=== PATIENT | male | born 1970 | race Caucasian/White ===

== ENCOUNTER 2016-07-26 21:08 | Emergency (ER) | payer OTHER ==
[~2016-07-26] VITALS: Ht 185.4 cm; Wt 98.4 kg
[~2016-07-26 21:08] MED LIST: ALPR0.5T99 PO; DIOV160T3 PO; HYDR-2768 PO; PROT40TA PO; VIAG50TA PO; ZOFR4TAB3 SL
[2016-07-26 21:25] VITALS: BP 166/114; PULSE 104; RESP 20; TEMP 98.4; O2SAT 98
[2016-07-26 21:30] VITALS: BP 143/87; PULSE 100; RESP 18; O2SAT 95
[2016-07-26] MEDS ORDERED: SODIUM CHLOR 0.9% 1000 ML INJ 1,000 ML IV SCH ×2 (21:46→22:45)
[2016-07-26] MEDS ORDERED: HYDR12.57 PO (21:50)
[2016-07-26] MEDS ORDERED: HYOS1TAB PO/SL (21:50)
[2016-07-26] MEDS ORDERED: GABA300C5 PO (21:50)
[2016-07-26] MEDS ORDERED: VALS1TAB70 PO (21:50)
[2016-07-26] MEDS ORDERED: ALPR0.25 PO (21:50)
[2016-07-26] MEDS ORDERED: LIDOCAINE VISCOUS 2% SOLN 15 ML UDC PO ONE (22:00)
[2016-07-26] MEDS ORDERED: HYDROmorphone HCL PF 1 MG/ML VIAL IVS ONE (22:00)
[2016-07-26] MEDS ORDERED: ALUMINUM/MAGNESIUM/SIMETH 30 ML CUP PO ONE (22:00)
[2016-07-26] MEDS ORDERED: PANTOPRAZOLE SODIUM 40 MG VIAL IVP ONE (22:00)
[2016-07-26] MEDS ORDERED: SODIUM CHLORIDE 0.9% FLUSH 10 ML FLUSH IV FLUSH PRN (22:00)
[2016-07-26] MEDS ORDERED: FAMOTIDINE 20 MG/2 ML VIAL IV PUSH ONE (22:00)
[2016-07-26] MEDS ORDERED: ONDANSETRON HCL 4 MG/2 ML VIAL IVP ONE (22:00)
--- NOTE | 2016-07-26 22:00 | PD ---
HPI Chief Complaint: vomiting/abdominal pain Time Seen by Provider: 21:41 Travel History International Travel<30 days: No Contact w/Intl Traveler<30days: No Traveled to known affect area: No History of Present Illness HPI The patient is a 45-year-old male that comes by private vehicle for midline epigastric pain and vomiting since approximately 4 PM this afternoon. He denies any diarrhea. He denies any blood in the stool or vomitus. He denies any fever. He did have several drinks of alcohol today prior to getting nauseated. He states that he no longer takes Protonix. He took this for a hiatal hernia and reflux esophagitis. Endoscopy showed gastritis the last time he had this episode in 2014. Endoscopy also showed a hiatal hernia. He denies taking any aspirin or nonsteroidal anti-inflammatory medications. The patient does have a history of anxiety and did not take any of his Xanax yet today. The last time he was here in 2014 for this problem he required multiple doses of antinausea medication. PFSH Past Medical History Diminished Hearing: No Past Surgical History Abdominal Surgery: Yes (BILAT HERNIA REPAIRS) Cholecystectomy: Yes Social History Alcohol Use: Yes (socially) Tobacco Use: Yes (/ ppd) Substance Use: No Allergies-Medications (Allergen,Severity, Reaction): Coded Allergies: No Known Allergies (Verified , 07/26/16) Reported Meds & Prescriptions Reported Meds & Active Scripts Active Reported Gabapentin 300 Mg Cap 300 Mg PO QID Hyoscyamine ODT (Hyoscyamine Sulfate) 0.125 Mg Tab 0.125 Mg PO/SL TID Alprazolam 0.25 Mg Tab 0.25 Mg PO DAILY PRN Hydrochlorothiazide 12.5 Mg Cap 12.5 Mg PO DAILY Valsartan 320 Mg Tab 320 Mg PO DAILY Review of Systems Except as stated in HPI: all other systems reviewed are Neg Physical Exam Narrative GENERAL: The patient is alert, oriented 3 in moderate distress with his midline epigastric pain. He does appear anxious. He requests something for the pain. His vital signs show blood pressure 166/114 with a heart rate of 104 but otherwise are normal. SKIN: Focused skin assessment warm/dry. HEAD: Atraumatic. Normocephalic. EYES: Pupils equal and round. No scleral icterus. No injection or drainage. ENT: No nasal bleeding or discharge. Mucous membranes pink and moist. NECK: Trachea midline. No JVD. CARDIOVASCULAR: Regular rate and rhythm. No murmur appreciated. RESPIRATORY: No accessory muscle use. Clear to auscultation. Breath sounds equal bilaterally. GASTROINTESTINAL: Abdomen shows exquisite tenderness in the midline epigastrium to direct palpation, nondistended. Hepatic and splenic margins not palpable. A slight amount of epigastric guarding is present but the rest the abdomen shows no guarding or rebound. MUSCULOSKELETAL: No obvious deformities. No clubbing. No cyanosis. No edema. NEUROLOGICAL: Awake and alert. No obvious cranial nerve deficits. Motor grossly within normal limits. Normal speech. PSYCHIATRIC: Appropriate mood and affect; insight and judgment normal. Data Data Last Documented VS Vital Signs Date Time Temp Pulse Resp B/P Pulse Ox O2 Delivery O2 Flow Rate FiO2 07/27/16 00:58 16 07/27/16 00:56 72 121/72 94 Nasal Cannula 2 07/26/16 21:25 98.4 Orders Complete Blood Count With Diff (07/26/16 21:46) Comprehensive Metabolic Panel (07/26/16 21:46) Lipase (07/26/16 21:46) Urinalysis - C+S If Indicated (07/26/16 21:46) Iv Access Insert/Monitor (07/26/16 21:46) Ecg Monitoring (07/26/16 21:46) Oximetry (07/26/16 21:46) Ondansetron Inj (Zofran Inj) (07/26/16 22:00) Pantoprazole Inj (Protonix Inj) (07/26/16 22:00) Sodium Chlor 0.9% 1000 Ml Inj (Ns 1000 M (07/26/16 21:46) Sodium Chloride 0.9% Flush (Ns Flush) (07/26/16 22:00) Famotidine Inj (Pepcid Inj) (07/26/16 22:00) Hydromorphone Pf Inj (Dilaudid Pf Inj) (07/26/16 22:00) Al-Mag Hy-Si 40-40-4 Mg/Ml Liq (Mag-Al P (07/26/16 22:00) Lidocaine 2% Viscous (Xylocaine 2% Visco (07/26/16 22:00) Electrocardiogram (07/26/16 21:44) Ondansetron Inj (Zofran Inj) (07/26/16 22:45) Sodium Chlor 0.9% 1000 Ml Inj (Ns 1000 M (07/26/16 22:45) Metoclopramide Inj (Reglan Inj) (07/26/16 23:45) Alcohol (Ethanol) (07/26/16 21:55) Sodium Chlor 0.9% 1000 Ml Inj (Ns 1000 M (07/27/16 00:30) Labs Laboratory Tests Test 07/26/16 07/27/16 21:55 00:05 White Blood Count 10.5 TH/MM3 Red Blood Count 3.94 MIL/MM3 Hemoglobin 14.0 GM/DL Hematocrit 40.4 % Mean Corpuscular Volume 102.6 FL Mean Corpuscular Hemoglobin 35.6 PG Mean Corpuscular Hemoglobin 34.7 % Concent Red Cell Distribution Width 13.1 % Platelet Count 305 TH/MM3 Mean Platelet Volume 6.9 FL Neutrophils (%) (Auto) 84.9 % Lymphocytes (%) (Auto) 7.1 % Monocytes (%) (Auto) 7.3 % Eosinophils (%) (Auto) 0.3 % Basophils (%) (Auto) 0.4 % Neutrophils # (Auto) 9.0 TH/MM3 Lymphocytes # (Auto) 0.7 TH/MM3 Monocytes # (Auto) 0.8 TH/MM3 Eosinophils # (Auto) 0.0 TH/MM3 Basophils # (Auto) 0.0 TH/MM3 CBC Comment DIFF FINAL Differential Comment Sodium Level 138 MEQ/L Potassium Level 3.1 MEQ/L Chloride Level 93 MEQ/L Carbon Dioxide Level 33.6 MEQ/L Blood Urea Nitrogen 9 MG/DL Creatinine 0.97 MG/DL Random Glucose 103 MG/DL Calcium Level 8.9 MG/DL Total Bilirubin 0.7 MG/DL Aspartate Amino Transf 299 U/L (AST/SGOT) Alanine Aminotransferase 99 U/L (ALT/SGPT) Alkaline Phosphatase 75 U/L Total Protein 7.4 GM/DL Albumin 3.8 GM/DL Anion Gap 11 MEQ/L Estimat Glomerular Filtration 83 ML/MIN Rate Lipase 198 U/L Ethyl Alcohol Level 240 MG/DL Urine Color YELLOW Urine Turbidity CLEAR Urine pH 7.5 Urine Specific [place] 1.019 Urine Protein 100 mg/dL Urine Glucose (UA) NEG mg/dL Urine Ketones 15 mg/dL Urine Occult Blood NEG Urine Nitrite NEG Urine Bilirubin NEGATIVE Urine Leukocyte Esterase NEGATIVE Urine RBC 0-3 /hpf Urine WBC 0-2 /hpf Urine Squamous Epithelial 0-5 /hpf Cells Urine Bacteria NONE /hpf Microscopic Urinalysis Comment CULT NOT INDICATED MDM Medical Decision Making Medical Screen Exam Complete: Yes Emergency Medical Condition: Yes Medical Record Reviewed: Yes Interpretation(s) The EKG is completely normal with normal sinus rhythm rate of 87. Differential Diagnosis Reflux esophagitis, ulcer pain, gastritis, pancreatitis, electrolyte disorder, dehydration, anemia Narrative Course At approximately 1 AM, the computer was on downtime, the patient felt much better and was discharged. His nausea was gone and his pain was gone. 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 He is to take his Protonix as prescribed. Diagnosis Primary Impression: Gastritis Additional Instructions: As we discussed, take her Protonix as prescribed and drink clear liquids to stay hydrated. Follow-up with your screen printing press operator. Avoid alcohol, aspirin and nonsteroidal anti-inflammatory medications. Med/Other Pt SpecificInfo: Prescription(s) given Scripts Promethazine (Phenergan)25 Mg Tab25 Mg PO Q6H PRN (Nausea/Vomiting) #30 TAB Ref 0 Prov:Randy Kang MD 07/27/16 Disposition: DISCHARGE HOME Condition: Stable Randy Kang MD Jul 26, 2016 22:00
[2016-07-26 22:20] VITALS: RESP 18; O2SAT 95
[2016-07-26 22:30] VITALS: RESP 16; O2SAT 96
[2016-07-26 22:34] LABS: BASOPHIL % 0.4 % (0.0-2.0); EOSINOPHIL % 0.3 % (0.0-4.0); HEMATOCRIT 40.4 % (39.0-51.0); LYMPH % 7.1 % (9.0-44.0); LYMPHOCYTE # 0.7 TH/MM3 (1.0-4.8); MEAN CELL VOLUME 102.6 FL (80.0-100.0); MEAN CORPUSCULAR HEMOGLOBIN 35.6 PG (27.0-34.0); MEAN CORPUSCULAR HGB CONC 34.7 % (32.0-36.0); MONO % 7.3 % (0.0-8.0); NEUT % 84.9 % (16.0-70.0); PLATELET COUNT 305 TH/MM3 (150-450); RED BLOOD COUNT 3.94 MIL/MM3 (4.50-5.90); RED CELL DISTRIBUTION WIDTH 13.1 % (11.6-17.2); WHITE BLOOD COUNT 10.5 TH/MM3 (4.0-11.0)
[2016-07-26 22:38] LABS: CHLORIDE 93 MEQ/L (98-107); HEMO FLAGS DIFF FINAL; POTASSIUM 3.1 MEQ/L (3.5-5.1); SODIUM (NA) 138 MEQ/L (136-145)
[2016-07-26 22:42] LABS: ANION GAP 11 MEQ/L (5-15); BICARBONATE 33.6 MEQ/L (21.0-32.0); BLOOD UREA NITROGEN 9 MG/DL (7-18)
[2016-07-26 22:45] LABS: ALT (GPT) 99 U/L (12-78); AST (GOT) 299 U/L (15-37); GLOMERULAR FILTRATION RATE 83 ML/MIN (>89)
[2016-07-26] MEDS ORDERED: ONDANSETRON HCL 4 MG/2 ML VIAL IV ONE (22:45)
[2016-07-26 22:47] LABS: TOTAL BILIRUBIN ADULT 0.7 MG/DL (0.2-1.0)
[2016-07-26 22:48] LABS: ALKALINE PHOSPHATASE 75 U/L (45-117)
[2016-07-26 22:50] VITALS: BP 113/62; PULSE 78; RESP 16; O2SAT 97
[2016-07-26] MEDS ORDERED: METOCLOPRAMIDE HCL 10 MG/2 ML VIAL IVS ONE (23:45)
[2016-07-26 23:50] VITALS: BP 113/69; PULSE 84; RESP 16; O2SAT 96
[2016-07-27] MEDS ORDERED: SODIUM CHLOR 0.9% 1000 ML INJ 1,000 ML IV SCH (00:30)
[2016-07-27 00:56] VITALS: BP 121/72; PULSE 72; RESP 16; O2SAT 94
[2016-07-27 02:52] LABS: BLOOD, URINE NEG (NEG); GLUCOSE,URINE NEG (NEG); KETONE, URINE 15 mg/dL (NEG); NITRITE,URINE NEG (NEG); PH, URINE 7.5 (5.0-8.5); RBC, URINE 0-3 /hpf (0-3); SQUAMOUS EPITHELIAL CELL URINE 0-5 /hpf (0-5); URINE COLOR YELLOW (YELLW/STRAW); WBC, URINE 0-2 /hpf (0-5)
[2016-07-27 02:53] LABS: COMMENT (UR) CULT NOT INDICATED; CULTURE IF INDICATED CULT NOT INDICATED
[2016-07-27] MEDS ORDERED: PROM25TA5 PO (02:59)
--- NOTE | 2016-07-27 14:59 | EKG ---
Date Performed: 07/26/2016 Time Performed: 21:34:20 PTAGE: 45 years EKG: Sinus rhythm Since previous tracing, no significant change noted Normal ECG PREVIOUS TRACING : 12/27/2014 23.41 DOCTOR: Too Pace Interpretating Date/Time 07/27/2016 14:57:37
== END 2016-07-27 03:36 | disposition home or self-care (01) ==
LOC: PHED 21:08
DX: K29.70 Gastritis, unspecified, without bleeding (principal)
CPT/HCPCS: 80053; 80307; 81001; 83690; 85025; 93005; 96361; 96374; 96375; 96376; 99284; C9113; J1170; J2405; J2765; J7030

== ENCOUNTER 2017-12-01 11:12 | Inpatient (IN) ==
[~2017-12-01 11:12] MED LIST changes: -ALPR0.5T99 PO; +Bupivacaine/Epinephrine 0.5% Inj 50 ML Vial ONE; -DIOV160T3 PO; -HYDR-2768 PO; +Hypromellose 0.3% Opth Gel 10 GM Bottle ONE; -PROT40TA PO; +Propofol Inj 500 MG/50 ML Vial ONE; +Thrombin Topical Soln 5,000 UNIT Vial TOPICAL ONE; -VIAG50TA PO; -ZOFR4TAB3 SL
[2017-12-01] MEDS ORDERED: Vancomycin Inj 1 GM/200 ML PIGGYBACK IV.SIG ONE ×2 (12:00→13:00)
[2017-12-01] MEDS ORDERED: Ketamine Inj 50 MG/5 ML Syringe IV.PUSH ONE (12:13)
[2017-12-01] MEDS ORDERED: Metoprolol Tartrate 25 MG Tablet PO SCH (12:15)
[2017-12-01] MEDS ORDERED: Chlorhexidine Gluconate 2% 1 Pack (2 Cloths) TOPICAL SCH (12:15)
[2017-12-01] MEDS ORDERED: Sod Chloride 0.9% Inj 1,000 ML IV.SIG SCH (12:30)
[2017-12-01] MEDS ORDERED: Sodium Chlor 0.9% Inj 500 ML IV.SIG SCH (13:00)
[2017-12-01] MEDS ORDERED: ceFAZolin 2 GM Premix Inj 2 GM/50 ML PIGGYBACK IV.SIG ONE (13:11)
[2017-12-01] MEDS ORDERED: fentaNYL Citrate Inj 250 MCG/5 ML Ampul ONE (13:57)
[2017-12-01] MEDS ORDERED: Bisacodyl 10 MG Supp RECTAL PRN ×3 (14:00→14:03)
[2017-12-01] MEDS ORDERED: HYDROmorphone PF Inj 2 MG/ML Vial ONE (14:01)
[2017-12-01] MEDS ORDERED: Naloxone Inj 0.4 MG/ML Vial IV.PUSH PRN (14:05)
[2017-12-01] MEDS ORDERED: Propofol Inj 500 MG/50 ML Vial ONE (16:09)
--- NOTE | 2017-12-01 17:20 | P.OP ---
- Preoperative Diagnosis (1) Lumbar degenerative disc disease - Postoperative Diagnosis (1) Lumbar degenerative disc disease Date of procedure: 12/01/17 Procedure: L4-L5 laminectomy, interbody arthrodhesis using PEEK cage and autologous bone graft, L4-L5 instrumental fixation using transpedicular screws and rods, L4-L5 posterolateral fusion using autologous bone graft and demineralized bone matrix. Microsurgical dissection Anesthesia: ANGELIQUE Surgeon: Alvaro Servin MD Entertainment Production Professional: Edel Aguilar Pathology: none sent Operation and Findings: INDICATIONS FOR THE SURGICAL PROCEDURE Mr Spicer is a 47 year-old with a hisyory of a prior L5-S1 fusion, who presented with intractable mechanical back pain and kareen evidence of L5 lower extremity radiculopathy. He failed maximum nonsurgical management including multiple modalities of conservative treatment as well as pain management interventions by an interventional pain specialist. A surgical decompression and arthrodhesis were indicated as a last resort. The [id number] details of the procedure, indications, alternatives, risks and potential complications were fully discussed with the patient. The patient fully understood. All the questions were answered. No guarantees were given. The patient voiced requesting the procedure and provided informed consents. The patient was offered the alternative of delaying the procedure and continuing with nonsurgical management. DETAILS OF THE SURGICAL PROCEDURE Prior to the procedure, the surgical incision was marked in the preoperative surgical holding room, and the procedure, risks, and potential complications revisited with the patient. Placement of electrodes for intraoperative neurophysiological monitoring was completed. The patient was taken to the operative room, and following induction of general anesthesia, endotracheal intubation was performed. A Lawrence catheter, bilateral BOB hose and sequential compression devices were placed and kept throughout the procedure. The patient was positioned prone, over a Louis table over a bolsters. All pressure in the preoperative surgical holding room points were carefully padded with eggcrate and gel mattress. The eyes were tapped shut after ointment was applied by the anesthesiologist to prevent corneal abrasion. A Carmel hugger was placed over the expossed lower body to maintain control of the core body temperature. The electrophysiological team placed the needles and electrodes in their proper location and baseline SSEP's and EMG potentials were registered. The entrance to each pedicles was marked using a C arm. The lumbar region was prepped and draped in the usual sterile fashion. The surgical procedure was performed in several steps as follow: SURGICAL APPROACH Once the patient was positioned, a localizing cross-table lateral x-ray was performed with a C-arm. Two paramedian small incisions were outlined on the skin approximately 3cm from the midline. The skin incisions were made with a # 10 blade. Small bleeders were controlled with the cautery. The dissection was then carried out into deper planes and through the thoracolumbar fascia with a Bovie. The intermuscular septum was identified and the myscles were blunted dissected along the septum. The facets and transverse process of L4 and L5 were exposed and the proper anatomical landmarks were identified. A microsurgical self-retaining retractor was placed on the incision, and a localizing lateralizing cross-table x-ray was performed with an instrument underneath a lamina of the lumbar spine. INSTRUMENTAL FIXATION At this point in the procedure, placement of bilateral transpedicular screws was necessary for stabilization of the spine. Initially, the entry point for the screw was selected anatomically at the junction of the facet, with the transverse process, and the pars interarticularis at L4 and L5. This was started with a Giamshetti needle followed by the use of a sofia wire. A tap was used to create the threads for the screws. Finally bilateral transpedicular screws were carefully placed bilaterally at L4, and L5 under fluoroscopic visualization. An appropriate purchase was achieved with all screws. The position of each screw was assessed anatomically with an AP, lateral , oblique Xrays. An intraoperative scan view of the spine was then performed using the iso-centric c-arm. Each screw was then assessed electrophysiologically stimulating each screw with a nerve stimulator. SURGICAL DECOMPRESSION There was significant mass effect with compression of the neural structures. In order to relieve neural compression, it was necessary to perform a decompressive laminectomy, with decompression of the spinal canal and bilateral lateral recesses. Note that the scope of such decompression was significantly more extensive than the minimal exposure necessary to perform an interbody fusion, as there was extreme facet arthropathy with near complete collapse of the disk spaces and severe stenosis cause by the hyperthrophic joint facets. At this point of the procedure the operative microscope was draped in the usual sterile fashion and brought to the field. The rest of the surgical procedure was performed using microdissection technique with the exception of the closure. Under the operating microscope, a decompressive laminectomy was carried out at L4-L5 as follow: The laminae, base of the spinous processes and facets were carefully drilled exposing the ligamentum flavum. The facets were abnormal with severe spondylolisthesis and gross mechanical instability. A large disk protusion was compressing the neural structures and exiting nerve roots. A near complete facetectomy was necessary resulting in further mechanical instability. The ligamentum flavum appeared hypertrophic, resulting on mass effect on the dorsal surface of the neural structures. The superior free border of the ligamentum flavum was elevated with a ligament dissector and the ligamentum flavum was removed with a 3 and 4 mm Kerrison forceps. The ligament was very adherent to the dural sac and during the dissection, and extreme care was taken during the dissection. The exiting nerve roots were identified, and a wide foraminotomy was performed with a Kerrison in their trajectory towards the neural foramen. Epidural veins located laterally to the dural sac were coagulated with the bipolar cautery, and then incised using microscissors. Gentle medial retraction of the dural sac allowed me to expose the disc space for the discectomy. Upon completion of the discectomy, an excellent decompression of the neural structures was achieved. Increased motion was noted thorough the procedure, which was consistent with mechanical instability. INTERBODY ARTHRODHESIS In order to correct the narrowing of the disk space and maintain distraction of the space, and to achieve a solid interbody fusion, it was necessary the insertion of an interbody device into the disk space. Otherwise, the disk space would collapse, compromising the result of the surgical procedure. At this point of the procedure, the annulus fibrosus of the disk was carefully coagulated with a bipolar cautery and incised using an 11 bladed knife. Then, a microdiscectomy was carried out in a standard fashion using a combination of straight and up-biting pituitary forceps. A reverse angle curette was applied underneath the posterior longitudinal ligament, and used to push the disk fragments into the disk space, so they can be safely removed with a pituitary forceps. Once the discectomy was completed, it was necessary to decorticate the endplates, in order to eliminate the cartilaginous endplate and to expose healthy bone appropriate to perform the interbody fusion. The endplates at L4- L5 were then thoroughly decorticated using increasing size bone brittney and ring curets, eliminating the cartilaginous fragments from both, the superior and inferior endplates. A disk space distractor was applied to the pedicle screws and gentle distraction was applied. This maneuver was assisted by the use of a disk distractor. Increased motility was noted at the disk, which was consistent with instability due to facet arthropathy. Once a thorough preparation of the disk space was achieved, the disk space was irrigated with antibiotic solution, and the interbody fusion was performed by carefully impacting a PPEK cage filled with autologous bone graft. A solid position of the cage with good purchase was achieved. The position of the cage was assessed anatomically with a probe and radiologically with the C-arm. POSTEROLATERAL FUSION The posterolateral fusion is a critical component to the procedure, to prevent future fatigue and failure of the instrumental fixation. Initially, the transverse processes of the vertebral bodies, lateral surface of the facets and the lateral gutters of the spine were carefully cleaned, eliminating all soft tissue and muscle attachments. The area was then irrigated with a large amount of antibiotic solution. Subsequently, the transverse processes, lateral surface of the facets, and lateral gutters of the spine were thoroughly decorticated using the TPS drill with a 5mm cutting alisha, exposing cancellous bone, in preparation for the posterolateral fusion. The incision was again irrigated with antibiotic solution. Then, the posterolateral fusion was then performed by carefully packing the lateral gutters of the spine at L4-L5 with autologous bone combined with demineralized bone matrix. I packed as much bone as possible. COMPLETION OF THE INSTRUMENTATION AND CLOSURE The rods were brought to the field, applied to all the screws, and the screw caps were sequentially applied. Compression was performed between the pedicle screws, and final tightening of the screws was completed using a torque wrench. The incision was again thoroughly irrigated with several liters of antibiotic solution, and hemostasis secured with the bipolar cautery. A Valsalva Maneuver performed by the anesthesiologist failed to show any evidence of cerebrospinal fluid leak or bleeding. A 10 mm Louis-Mar drain was left in the epidural space and externalized through a separate stab incision. The incision was then closed in planes. 0 Vicryl was used in an interrupted fashion to close the thoracolumbar fascia and the superficial fascia. The subcutaneous tissue was then approximated using 3-0 Vicryl in an interrupted fashion. Special care was taken to avoid space. The skin was then closed with 4-0 Vicryl in a running, subcuticular fashion. Dermabond was applied to the skin. Each plane of closure was irrigated with antibiotic solution. At the end of the procedure the sponge, needle and instrument counts were all correct. Estimated blood loss was 250 cc. No blood transfusion was given. The entire procedure was performed using continuous electrophysiological monitoring of the somatosensorial evoked potentials and EMG. The patient received prophylactic antibiotics. The patient was then extubated and transferred to the recovery room in stable condition.
[2017-12-01] MEDS ORDERED: fentaNYL Citrate Inj 100 MCG/2 ML Ampul ONE (17:50)
--- NOTE | 2017-12-01 17:50 | ECG ---
Date Performed: 12/01/2017 Time Performed: 11:32:57 PTAGE: 47 years EKG: Sinus rhythm NORMAL ECG Since the PREVIOUS TRACING , no significant change noted PREVIOUS TRACIN07/26/2016 21.34 DOCTOR: Viraj Galdamez Interpretating Date/Time 12/01/2017 17:49:01
[2017-12-01] MEDS ORDERED: Morphine Inj 4 MG/ML Vial ONE (17:51)
[2017-12-01] MEDS: HYDROmorphone PCA Inj 6 MG/30 ML PCA.VIAL PCA PRN (18:07)
[2017-12-01] MEDS ORDERED: *Ondansetron Inj 4 MG/2 ML Vial PERIprocedural Use ONLY ONE (18:17)
[2017-12-01] MEDS ORDERED: *Labetalol HCl Inj 100 MG/20 ML Vial PERIprocedural Use ONLY IV.PUSH ONE (18:34)
--- NOTE | 2017-12-01 19:47 | XR ---
EXAM DATE: 12/01/2017 7:33 PM EDT AGE/SEX: 47 years / Male INDICATIONS: Fusion L4,L5 with screws and rods placement. CLINICAL DATA: This is the patient's initial encounter. Patient reports that signs and symptoms have been present for 1 day and indicates a pain score of Nonresponsive. MEDICAL/SURGICAL HISTORY: None. Fusion, lumbar. COMPARISON: No prior exams available for comparison. FINDINGS: There is anterior plate and screw fixation across the lumbosacral junction with intravertebral metal prosthesis. There is also posterior transpedicular screw and maria l fixation across L4-5 with disc prost hesis. CONCLUSION: Postoperative changes as above. Electronically signed by: Catrachito Velarde MD 12/01/2017 7:46 PM EDT
[2017-12-01] MEDS ORDERED: Senna/Docusate Sodium 8.6/50 MG Tablet PO SCH ×2 (21:00)
[2017-12-01] MEDS: ALPRAZolam 0.5 MG Tablet PO PRN (21:04)
[2017-12-01] MEDS: ceFAZolin 2 GM Premix Inj 2 GM/50 ML PIGGYBACK IV.SIG SCH (21:04)
[2017-12-01] MEDS: Senna/Docusate Sodium 8.6/50 MG Tablet PO SCH (21:04)
[2017-12-02] MEDS: HYDROmorphone PCA Inj 6 MG/30 ML PCA.VIAL PCA PRN ×2 (01:47→10:07)
[2017-12-02] MEDS ORDERED: LORazepam 1 MG Tablet PO PRN (03:38)
[2017-12-02] MEDS: ceFAZolin 2 GM Premix Inj 2 GM/50 ML PIGGYBACK IV.SIG SCH (05:00)
[2017-12-02] MEDS: Senna/Docusate Sodium 8.6/50 MG Tablet PO SCH ×2 (08:53→20:53)
[2017-12-02] MEDS: hydroCHLOROthiazide 25 MG Tablet PO SCH (08:53)
--- NOTE | 2017-12-02 08:58 | P.CONIM ---
History of Present Illness Requesting Physician: Alvaro Servin Reason for Consult: Postoperative medical management and CIWA Primary Care Provider: Wellington Palmer MD Family Provider: Wellington Palmer MD History of Present Illness: This a 47-year-old male patient with a past medical history which includes hypertension, lumbar radiculopathy, lumbar degenerative disc disease, anxiety/ depression, GERD, Blandon's esophagitis, daily EtOH use and current tobacco use. On 12/01/2017 patient underwent L4-L5 laminectomy, interbody arthrodhesis using PEEK cage and autologous bone graft, L4-L5 instrumental fixation using transpedicular screws and rods, L4-L5 posterolateral fusion using autologous bone graft and demineralized bone matrix. Microsurgical dissection with Dr. Servin. We have been consulted for assistance with postoperative medical management and also CIWA protocol. Patient reports feeling anxious and is visually tremulous. Patient denies N/V/D/C, fevers, chills, chest pain or shortness of breath. Past medical history: hypertension, lumbar radiculopathy, lumbar degenerative disc disease, anxiety/ depression, GERD, Blandon's esophagitis, daily EtOH use and current tobacco use Past surgical history: Prior back surgeries, cholecystectomy, complete colonoscopy, duodenoscopy with biopsy, hernia repair, epidural injections and spinal arthrodesis Family medical history: Malignant neoplasm of the brain and malignant neoplasm of the esophagus Social history: Patient reports daily ETOH use, approximately 6-7 large Yeti cups per night Current tobacco user proximally 1 pack per day Denies illicit drug use Review of Systems All other systems reviewed negative except as stated in [facility] - History History Provided By: Patient, Significant Other - Medical History Medical History: Medical History (Last Reviewed 12/01/17 @ 11:27 by Jing Hanks) Anxiety GERD (gastroesophageal reflux disease) Hiatal hernia History of colon polyps Hypertension Normal colonoscopy - Surgical History Surgical History: Surgical History (Last Reviewed 12/01/17 @ 11:27 by Jing Hanks) History of bilateral inguinal hernia repair Hx of cholecystectomy Previous back surgery Status post bilateral foot surgery - Tobacco History Second Hand Smoke Exposure: No Tobacco Use In Past 30 Days: Yes Smoking Status: Current every day smoker Tobacco Type: Cigarettes - Alcohol History How Often Do You Have a Drink Containing Alcohol: 4 or more times a week - Substance Use History Substance History: No History of Abuse - Travel History Recent Travel in the [place] Within the Last 8 Weeks: No Recent Travel Out of the Country Within the Last 8 Weeks: No - Immunization History Tetanus Immunization: Unsure Hx Influenza Vaccine This Season: Yes Medications and Allergies Active Medications: Active Medications Hydrocodone Bitart/Acetaminophen ([place] 10/325) 2 tab PO Q4H PRN PRN Reason: PAIN SCALE 6 TO 10 Hydrocodone Bitart/Acetaminophen ([place] 10/325) 1 tab PO Q4H PRN PRN Reason: Pain 1 to 5 Al Hydroxide/Mg Hydroxide (Milk Of Magnmarivel Liq) 30 ml PO Q12H PRN PRN Reason: Mild Constipation Alprazolam (Xanax) 0.5 mg PO BID PRN PRN Reason: Anxiety Last Admin: 12/01/17 21:04 Dose: 0.5 mg Bisacodyl (Dulcolax Supp) 10 mg RECTAL DAILY PRN PRN Reason: SEVERE CONSITIPATION Chlorhexidine Gluconate (Chlorhexidine 2% Cloth) 3 pack TOPICAL HOSE STRIPPER [facility] Stop: 12/04/17 12:15 Flumazenil (Romazecon Inj) 0.2 mg IV.PUSH Q1M PRN PRN Reason: OVERSEDATION Hydrochlorothiazide (Hydrodiuril) 25 mg PO DAILY [facility] Lactated Ringer's (Lr 1000 Ml Inj) 1,000 mls @ 30 mls/hr IV.SIG .Q24H [facility] Stop: 12/04/17 12:15 Sodium Chloride (Ns Inj) 500 mls @ 30 mls/hr IV.SIG .Q10H [facility] Stop: 12/04/17 12:15 Sodium Chloride (Ns Inj) 1,000 mls @ 30 mls/hr IV.SIG .Q24H [facility] Cefazolin Sodium/Dextrose (Ancef 2 Gm Premix Inj) 2 gm in 50 mls @ 100 mls/hr IV.SIG Q8H [facility] Stop: 12/02/17 13:29 Last Admin: 12/02/17 05:00 Dose: 100 mls/hr Potassium Chloride/Sodium Chloride (Ns + Kcl 20 Meq Inj) 1,000 mls @ 100 mls/ hr IV.CONT .Q10H [facility] Last Admin: 12/01/17 18:06 Dose: 100 mls/hr Hydromorphone/Sodium Chloride (Dilaudid Winchman/Crane Operator Inj) 6 mg in 30 mls @ 0 mls/hr PLANNING OFFICIAL UNSCH PRN PRN Reason: per PLANNING OFFICIAL parameters Last Admin: 12/02/17 01:47 Dose: 0 mls/hr Lactulose (Lactulose Liq) 30 ml PO DAILY PRN PRN Reason: SEVERE CONSITIPATION Lorazepam (Ativan Inj) 1 mg IV.PUSH Q30M PRN PRN Reason: AGITATION Last Admin: 12/02/17 03:35 Dose: 1 mg Lorazepam (Ativan) 1 mg PO Q4H PRN PRN Reason: for CIWA 8-10 Lorazepam (Ativan) 2 mg PO Q2H PRN PRN Reason: for CIWA 11-14 Lorazepam (Ativan Inj) 2 mg IV.PUSH Q2H PRN PRN Reason: for CIWA 11-14 Lorazepam (Ativan Inj) 2 mg IV.PUSH Q15M PRN PRN Reason: for CIWA > 20 Lorazepam (Ativan Inj) 1 mg IV.PUSH Q4H PRN PRN Reason: for CIWA 8-10 Lorazepam (Ativan Inj) 2 mg IV.PUSH Q1H PRN PRN Reason: for CIWA 15-20 Losartan Potassium (Cozaar) 100 mg PO DAILY [facility] Metoprolol Tartrate (Lopressor) 25 mg PO HOSE STRIPPER [facility] Stop: 12/04/17 12:15 Miscellaneous Information ([facility]) 1 each OTHER UNSCH PRN PRN Reason: SEE LABEL COMMENTS Stop: 12/02/17 17:36 Naloxone HCl (Narcan Inj) 0.4 mg IV.PUSH PRN PRN PRN Reason: SEE LABEL COMMENTS Ondansetron HCl (Zofran Inj) 4 mg IV.PUSH Q8H PRN PRN Reason: NAUSEA Last Admin: 12/01/17 21:17 Dose: 4 mg Ondansetron HCl (Zofran Odt) 4 mg PO Q8H PRN PRN Reason: NAUSEA Last Admin: 12/02/17 07:09 Dose: 4 mg Pantoprazole Sodium (Protonix) 40 mg PO DAILY [facility] Povidone Iodine (Betadine 5% Antisepsis Kit) 1 applicatio EACH NARE HOSE STRIPPER [facility] Stop: 12/04/17 12:15 Senna/Docusate Sodium (Ariadne-Colace) 1 tab PO BID [facility] Last Admin: 12/01/17 21:04 Dose: 1 tab Sennosides (Senokot) 17.2 mg PO Q12H PRN PRN Reason: Moderate Constipation Allergies Allergy/AdvReac Type Severity Reaction Status Date / Time No Known Allergies Allergy Unverified 12/01/17 11:27 Home Medications Medication Instructions Recorded Confirmed Type alprazolam 0.5 mg PO BID PRN 11/30/17 12/01/17 History hydrochlorothiazide 25 mg PO DAILY 11/30/17 12/01/17 History pantoprazole 40 mg PO DAILY 11/30/17 12/01/17 History telmisartan 80 mg PO DAILY 11/30/17 12/01/17 History Exam Vital signs: Vital Signs 12/01/17 11:32 12/01/17 17:33 12/01/17 17:45 Temperature 98.8 F 97.2 F L Pulse Rate 96 H 97 H 91 H Respiratory Rate 20 15 15 Blood Pressure 159/101 H 172/109 H 160/94 H Pulse Oximetry 97 95 93 L 12/01/17 18:00 12/01/17 18:15 12/01/17 18:30 Temperature Pulse Rate 92 H 90 93 H Respiratory Rate 14 14 16 Blood Pressure 173/103 H 178/110 H 175/99 H Pulse Oximetry 95 96 96 12/01/17 18:48 12/01/17 19:00 12/01/17 19:30 Temperature Pulse Rate 87 88 86 Respiratory Rate 16 16 16 Blood Pressure 169/97 H 177/96 H 167/104 H Pulse Oximetry 97 96 96 12/01/17 20:00 12/02/17 00:00 12/02/17 04:00 Temperature 97.3 F L 97.5 F L 97.3 F L Pulse Rate 85 82 97 H Respiratory Rate 21 20 19 Blood Pressure 176/109 H 163/97 H 147/95 H Pulse Oximetry 95 97 98 12/02/17 08:00 Temperature 97.2 F L Pulse Rate 88 Respiratory Rate 17 Blood Pressure 129/87 Pulse Oximetry 97 Intake & Output 12/01/17 12/02/17 12/02/17 18:59 06:59 18:59 Intake Total 2500 / 2500 2550 / 2550 Output Total 650 / 650 2300 / 2300 Balance 1850 / 1850 250 / 250 Weight 96.1 kg 86.1 kg Intake: IV 50 / 50 Ancef 2 GM Premix Inj 2 gm In 50 / 50 50 ml @ 100 mls/hr IV.SIG Q8H [facility] Rx#:[id number] Oral 2500 / 2500 Anesthesia Amount 2500 / 2500 Output: Urine 2000 / 2000 Estimated Blood Loss 200 / 200 Urine Amount (Catheter) 450 / 450 300 / 300 Indwelling Urethral Catheter 450 / 450 300 / 300 Other: Date of Last Bowel Movement 11/30/17 Weight On Admission 96.1 kg Narrative: GENERAL: This is a well-nourished, well-developed patient, visibly tremulous CARDIOVASCULAR: Regular rate and rhythm RESPIRATORY: Clear to auscultation. Breath sounds equal bilaterally. GASTROINTESTINAL: Abdomen soft, non-tender, nondistended. Normal active bowel sounds MUSCULOSKELETAL: Extremities without clubbing, cyanosis, or edema. NEURO: Alert & Oriented x4 to person, place, time, situation. Moves all ext x4. Anxious and tremulous Results - Labs Labs: Laboratory Results - last 24 hr 12/01/17 12/01/17 12/01/17 11:55 11:55 11:55 APTT 26.9 Nasal Screen MRSA (PCR) Not detected Blood Type O Positive Blood Type Recheck Required Antibody Screen Negative - Imaging Impressions Lumbar Spine X-Ray 12/01/17 00:00 CONCLUSION: Postoperative changes as above. Assessment and Plan - Assessment (1) Lumbar degenerative disc disease Code(s): M51.36 - Other intervertebral disc degeneration, lumbar region Status : Acute Plan: Lumbar radiculopathy, Lumbar degenerative disc disease, S/P L4-L5 laminectomy, interbody arthrodhesis using PEEK cage and autologous bone graft, L4-L5 instrumental fixation using transpedicular screws and rods, L4 -L5 posterolateral fusion using autologous bone graft and demineralized bone matrix. Microsurgical dissection with Dr. Servin Hypertension Continue patient's home telmisartan and hydrochlorothiazide Anxiety/depression Continue patient's home alprazolam 0.5 mg p.o. twice daily as needed GERD Blandon's esophagitis Continue patient's home pantoprazole ETOH abuse Librium 25 mg TID first dose now, discussed with nurse that patient urgently needs first dose of Librium continue CIWA protocol seizure precautions patient being moved to a room closer to the nursing station for closer monitoring Current tobacco use Counseled encouraged to abstain DVT prophylaxis with SCDs avoid chemical DVT prophylaxis as patient has recently had spinal surgery
--- NOTE | 2017-12-02 09:55 | P.PNNS ---
Subjective Interval history: 12/02: c/o of moderate to severe surgical pain worse when he tries to move. Physical Exam Vital signs: Vital Signs 12/01/17 11:32 12/01/17 17:33 12/01/17 17:45 Temperature 98.8 F 97.2 F L Pulse Rate 96 H 97 H 91 H Respiratory Rate 20 15 15 Blood Pressure 159/101 H 172/109 H 160/94 H Pulse Oximetry 97 95 93 L 12/01/17 18:00 12/01/17 18:15 12/01/17 18:30 Temperature Pulse Rate 92 H 90 93 H Respiratory Rate 14 14 16 Blood Pressure 173/103 H 178/110 H 175/99 H Pulse Oximetry 95 96 96 12/01/17 18:48 12/01/17 19:00 12/01/17 19:30 Temperature Pulse Rate 87 88 86 Respiratory Rate 16 16 16 Blood Pressure 169/97 H 177/96 H 167/104 H Pulse Oximetry 97 96 96 12/01/17 20:00 12/02/17 00:00 12/02/17 04:00 Temperature 97.3 F L 97.5 F L 97.3 F L Pulse Rate 85 82 97 H Respiratory Rate 21 20 19 Blood Pressure 176/109 H 163/97 H 147/95 H Pulse Oximetry 95 97 98 12/02/17 08:00 Temperature 97.2 F L Pulse Rate 88 Respiratory Rate 17 Blood Pressure 129/87 Pulse Oximetry 97 Intake & Output 12/01/17 12/02/17 12/02/17 18:59 06:59 18:59 Intake Total 2500 / 2500 2550 / 2550 Output Total 650 / 650 2300 / 2300 Balance 1850 / 1850 250 / 250 Weight 96.1 kg 86.1 kg Intake: IV 50 / 50 Ancef 2 GM Premix Inj 2 gm In 50 / 50 50 ml @ 100 mls/hr IV.SIG Q8H [facility] Rx#:[id number] Oral 2500 / 2500 Anesthesia Amount 2500 / 2500 Output: Urine 1999 / 1999 Estimated Blood Loss 200 / 200 Urine Amount (Catheter) 450 / 450 300 / 300 Indwelling Urethral Catheter 450 / 450 300 / 300 Other: Date of Last Bowel Movement 11/30/17 Weight On Admission 96.1 kg Narrative: Awake, alert appearing mildly uncomfortable due to pain moving lower extremities but exam limited due to his pain - Urinary Catheter Management Indwelling Urethral Catheter Cath placed during this visit: yes Reason for continuing: Hourly intake/output Insertion date: 12/01/17 Insertion time: 13:15 Assessment and Plan - Plan Assessment: 47 y/o male s/p L4-L5 laminectomy, interbody arthrodesis using PEEK cage and autologous bone graft, L4-L5 instrumental fixation using transpedicular screws and rods, L4-L5 posterolateral fusion using autologous bone graft and demineralized bone matrix. Microsurgical dissection 12/01/17 Etoh dependence Plan: cont pain control on [employer] LSO brace PT, start mobilizing with LSO appreciate medical assistance CIWA protocol
[2017-12-02] MEDS ORDERED: ceFAZolin 2 GM/NS 100 ML IV; Q8H IV.SIG ONE ×2 (13:00)
[2017-12-02] MEDS: chlordiazePOXIDE 25 MG Capsule PO SCH ×2 (14:46→20:53)
[2017-12-03] MEDS: chlordiazePOXIDE 25 MG Capsule PO SCH ×4 (02:29→21:10)
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
[2017-12-03] MEDS ORDERED: Potassium Chlor 40 mEq Premix 40 MEQ/100 ML PIGGYBACK IV.SIG PRN ×2 (08:03)
[2017-12-03] MEDS ORDERED: Potassium Phosphate Inj 30 MMOL in Sodium Chlor 0.9% Inj 250 ML IV.SIG PRN (08:03)
[2017-12-03] MEDS ORDERED: Magnesium Sulfate Inj 4 GM in Sodium Chlor 0.9% Inj 92 ML IV.SIG PRN (08:03)
[2017-12-03] MEDS ORDERED: Magnesium Oxide 400 MG Tablet PO PRN (08:03)
[2017-12-03] MEDS ORDERED: Potassium Chloride 25 MEQ Effervescent Tablet PO PRN (08:03)
[2017-12-03] MEDS ORDERED: Sodium Phosphate Inj 30 MMOL in Sodium Chlor 0.9% Inj 250 ML IV.SIG PRN (08:03)
[2017-12-03] MEDS ORDERED: Potassium Phosphate 500 MG Soluble Tablet PO PRN ×2 (08:03)
[2017-12-03] MEDS ORDERED: Magnesium Sulfate Inj 2 GM in Sodium Chlor 0.9% Inj 96 ML IV.SIG PRN (08:03)
[2017-12-03] MEDS ORDERED: Potassium Chlor 20 mEq Premix 20 MEQ/100 ML PIGGYBACK IV.SIG PRN ×2 (08:03)
[2017-12-03] MEDS ORDERED: *Labetalol HCl Inj 100 MG/20 ML Vial PERIprocedural Use ONLY IV.PUSH PRN (08:07)
[2017-12-03] MEDS: Dexmedetomidine Inj 200 MCG in Sodium Chlor 0.9% Inj 48 ML IV.CONT PRN ×2 (08:10→13:04)
[2017-12-03] MEDS: hydroCHLOROthiazide 25 MG Tablet PO SCH (08:11)
[2017-12-03] MEDS: Senna/Docusate Sodium 8.6/50 MG Tablet PO SCH ×2 (08:11→21:10)
[2017-12-03] MEDS: Multivitamin Inj 10 ML, Thiamine Inj 100 MG, Folic Acid Inj 1 MG in Sodium Chlor 0.9% I... IV.SIG SCH (09:03)
[2017-12-03] MEDS ORDERED: Morphine Inj 4 MG/ML Vial IV.PUSH PRN (09:29)
[2017-12-03 10:20] LABS: Hematocrit 30.8 % (39.0-51.0); Hemoglobin 10.8 gm/dL (13.0-17.0); Mean Corpuscular HGB Conc 35.1 % (32.0-36.0); Mean Corpuscular Hemoglobin 38.2 pg (27.0-34.0); Mean Corpuscular Volume 108.8 fL (80.0-100.0); Mean Platelet Volume 6.6 fL (7.0-11.0); Platelet Count 201 th/mm3 (150-450); Red Blood Count 2.83 mil/mm3 (4.50-5.90); Red Cell Distribution Width 14.9 % (11.6-17.2); White Blood Count 8.6 th/mm3 (4.0-11.0)
[2017-12-03 10:43] LABS: Albumin 3.4 g/dL (3.4-5.0); Anion Gap 9 meq/L (5-15); Aspartate Aminotransferase 61 U/L (15-37); Blood Urea Nitrogen 4 mg/dL (7-18); Calcium 8.8 mg/dL (8.5-10.1); Carbon Dioxide 26.3 meq/L (21.0-32.0); Chloride 99 meq/L (98-107); Glomerular Filtration Rate Greater Than 89 mL/min (>89); Glucose,Random 123 mg/dL (74-106); Potassium 3.6 meq/L (3.5-5.1); Sodium 134 meq/L (136-145)
[2017-12-03 10:48] LABS: Alanine Aminotransferase 34 U/L (12-78); Alkaline Phosphatase 48 U/L (45-117); Total Protein 6.4 g/dL (6.4-8.2)
[2017-12-03 11:08] LABS: Magnesium 1.3 mg/dL (1.5-2.5); Phosphorus 1.9 mg/dL (2.5-4.9)
--- NOTE | 2017-12-03 11:29 | P.PNNS ---
Subjective Interval history: 12/03: became severely agitated last night. transferred to ICU, on Precedex drip. Physical Exam Vital signs: Vital Signs 12/02/17 12:00 12/02/17 16:00 12/02/17 20:00 Temperature 97.4 F L 97.9 F 98.2 F Pulse Rate 100 H 98 H 102 H Respiratory Rate 18 18 18 Blood Pressure 156/101 H 150/93 H 152/79 H Pulse Oximetry 98 100 95 12/03/17 00:00 12/03/17 04:00 12/03/17 08:00 Temperature 98.7 F 98.4 F 99.1 F Pulse Rate 95 H 110 H Respiratory Rate 18 18 22 Blood Pressure 130/83 159/81 H 179/110 H Pulse Oximetry 96 95 97 12/03/17 08:01 Temperature Pulse Rate Respiratory Rate Blood Pressure Pulse Oximetry 100 Intake & Output 12/02/17 12/03/17 12/03/17 18:59 06:59 18:59 Intake Total 3700 / 3700 420 / 420 1120 / 1120 Output Total 3650 / 3650 765 / 765 Balance 50 / 50 -345 / -345 1120 / 1120 Weight 98.1 kg Intake: IV 1000 / 1000 NS + KCl 20 mEq Inj 1,000 ML @ 1000 / 1000 100 mls/hr IV.CONT .Q10H [facility] Rx #:[id number] Oral 1200 / 1200 420 / 420 120 / 120 Anesthesia Amount 2500 / 2500 Output: Urine 2000 / 2000 750 / 750 Estimated Blood Loss 400 / 400 Urine Amount (Catheter) 1250 / 1250 Indwelling Urethral Catheter 1250 / 1250 Wound Drainage # 1 Medial Back Other: Date of Last Bowel Movement 11/30/17 11/30/17 11/30/17 Narrative: mildly sedated on precedex, appears calm awake no distress - Urinary Catheter Management Indwelling Urethral Catheter Cath placed during this visit: yes, but has since been removed by the nurse Reason for continuing: Hourly intake/output Insertion date: 12/01/17 Insertion time: 13:15 Removal date: 12/03/17 Removal time: 06:00 Assessment and Plan - Plan Assessment: 47 y/o male s/p L4-L5 laminectomy, interbody arthrodesis using PEEK cage and autologous bone graft, L4-L5 instrumental fixation using transpedicular screws and rods, L4-L5 posterolateral fusion using autologous bone graft and demineralized bone matrix. Microsurgical dissection 12/01/17 Etoh dependence Plan: cont sedated with precedex for agitation, ADMINISTRATIVE JOB TITLES dc'ed, lortab prn and morphine for breakthrough for postoperative pain control LSO brace critical care following cont CIWA protocol, supportive care Dr. Malathi eng family
[2017-12-03] MEDS: ALPRAZolam 0.5 MG Tablet PO PRN (21:10)
[2017-12-04] MEDS: Dexmedetomidine Inj 200 MCG in Sodium Chlor 0.9% Inj 48 ML IV.CONT PRN ×7 (01:36→23:16)
[2017-12-04] MEDS: chlordiazePOXIDE 25 MG Capsule PO SCH ×4 (02:36→20:13)
[2017-12-04 06:02] LABS: Hematocrit 29.4 % (39.0-51.0); Hemoglobin 10.5 gm/dL (13.0-17.0); Mean Corpuscular HGB Conc 35.6 % (32.0-36.0); Mean Corpuscular Hemoglobin 38.7 pg (27.0-34.0); Mean Corpuscular Volume 108.8 fL (80.0-100.0); Mean Platelet Volume 7.3 fL (7.0-11.0); Platelet Count 220 th/mm3 (150-450); Red Cell Distribution Width 14.9 % (11.6-17.2); White Blood Count 8.9 th/mm3 (4.0-11.0)
[2017-12-04 06:14] LABS: Anion Gap 10 meq/L (5-15); Blood Urea Nitrogen 6 mg/dL (7-18); Calcium 8.7 mg/dL (8.5-10.1); Carbon Dioxide 24.1 meq/L (21.0-32.0); Chloride 102 meq/L (98-107); Glomerular Filtration Rate Greater Than 89 mL/min (>89); Glucose,Random 92 mg/dL (74-106); Potassium 3.7 meq/L (3.5-5.1); Sodium 136 meq/L (136-145)
[2017-12-04] MEDS: hydroCHLOROthiazide 25 MG Tablet PO SCH (08:25)
[2017-12-04] MEDS: Senna/Docusate Sodium 8.6/50 MG Tablet PO SCH ×2 (08:26→20:13)
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
[2017-12-04] MEDS ORDERED: Dextrose 50% in Water 50 ML Vial IV.PUSH PRN (10:24)
[2017-12-04] MEDS: Multivitamin Inj 10 ML, Thiamine Inj 100 MG, Folic Acid Inj 1 MG in Sodium Chlor 0.9% I... IV.SIG SCH (11:09)
[2017-12-04] MEDS: Mag Sulf 1 gm/100 ml Premix 100 ML IV.SIG SCH ×2 (11:21→13:48)
[2017-12-04] MEDS ORDERED: Phenylephrine/NS 1000 MCG/10ML Syringe IV.PUSH ONE (12:00)
[2017-12-04] MEDS ORDERED: Potassium Phosphate Inj 30 MMOL in Sodium Chlor 0.9% Inj 250 ML IV.SIG ONE (12:00)
[2017-12-04] MEDS ORDERED: Lidocaine PF 1% Inj 5 ML Syringe INFILTRATN ONE (12:00)
[2017-12-04] MEDS: Insulin NovoLOG Aspart Correctional Sugar Inj SQ SCH ×2 (13:49→18:29)
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
[2017-12-04] MEDS: Dexmedetomidine Inj 1,000 MCG in Sodium Chlor 0.9% Inj 240 ML IV.CONT PRN (23:15)
[2017-12-05] MEDS: Insulin NovoLOG Aspart Correctional Sugar Inj SQ SCH ×5 (00:27→21:02)
[2017-12-05] MEDS: chlordiazePOXIDE 25 MG Capsule PO SCH ×4 (04:19→23:10)
[2017-12-05 05:35] LABS: Baso # (Auto) 0.1 th/mm3 (0.0-0.2); Baso % (Auto) 0.7 % (0.0-2.0); Eos # (Auto) 0.1 th/mm3 (0.0-0.4); Eos % (Auto) 0.5 % (0.0-4.0); Hematocrit 34.7 % (39.0-51.0); Hemoglobin 12.2 gm/dL (13.0-17.0); Lymph # (Auto) 0.9 th/mm3 (1.0-4.8); Lymph % (Auto) 7.9 % (9.0-44.0); Mean Corpuscular HGB Conc 35.2 % (32.0-36.0); Mean Corpuscular Hemoglobin 38.2 pg (27.0-34.0); Mean Corpuscular Volume 108.6 fL (80.0-100.0); Mean Platelet Volume 7.3 fL (7.0-11.0); Mono # (Auto) 1.3 th/mm3 (0.0-0.9); Mono % (Auto) 12.3 % (0.0-8.0); Neut # (Auto) 8.6 th/mm3 (1.8-7.7); Neut % (Auto) 78.6 % (16.0-70.0); Platelet Count 256 th/mm3 (150-450); Red Blood Count 3.19 mil/mm3 (4.50-5.90); Red Cell Distribution Width 14.7 % (11.6-17.2); White Blood Count 10.9 th/mm3 (4.0-11.0)
[2017-12-05 06:01] LABS: Alanine Aminotransferase 26 U/L (12-78); Albumin 3.4 g/dL (3.4-5.0); Alkaline Phosphatase 58 U/L (45-117); Anion Gap 13 meq/L (5-15); Aspartate Aminotransferase 45 U/L (15-37); Blood Urea Nitrogen 8 mg/dL (7-18); Calcium 9.8 mg/dL (8.5-10.1); Carbon Dioxide 20.7 meq/L (21.0-32.0); Chloride 106 meq/L (98-107); Glomerular Filtration Rate Greater Than 89 mL/min (>89); Glucose,Random 91 mg/dL (74-106); Magnesium 1.6 mg/dL (1.5-2.5); Phosphorus 4.2 mg/dL (2.5-4.9); Potassium 4.1 meq/L (3.5-5.1); Sodium 140 meq/L (136-145); Total Protein 7.4 g/dL (6.4-8.2)
[2017-12-05] MEDS: Dexmedetomidine Inj 1,000 MCG in Sodium Chlor 0.9% Inj 240 ML IV.CONT PRN ×2 (06:41→14:40)
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
[2017-12-05] MEDS: Senna/Docusate Sodium 8.6/50 MG Tablet PO SCH ×2 (08:29→20:48)
[2017-12-05] MEDS: hydroCHLOROthiazide 25 MG Tablet PO SCH (08:30)
[2017-12-05] MEDS: Polyethylene Glycol 3350 17 GM Packet PO SCH ×2 (08:31→20:49)
[2017-12-05] MEDS: Magnesium Oxide 400 MG Tablet PO SCH ×2 (08:31→20:48)
[2017-12-05] MEDS: Mag Sulf 1 gm/100 ml Premix 100 ML IV.SIG SCH ×2 (08:32→12:33)
[2017-12-05] MEDS: Multivitamin Inj 10 ML, Thiamine Inj 100 MG, Folic Acid Inj 1 MG in Sodium Chlor 0.9% I... IV.SIG SCH (11:31)
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
[2017-12-06] MEDS: Dexmedetomidine Inj 1,000 MCG in Sodium Chlor 0.9% Inj 240 ML IV.CONT PRN (00:14)
[2017-12-06 05:56] LABS: Baso # (Auto) 0.1 th/mm3 (0.0-0.2); Baso % (Auto) 0.6 % (0.0-2.0); Eos # (Auto) 0.1 th/mm3 (0.0-0.4); Eos % (Auto) 0.7 % (0.0-4.0); Hematocrit 31.1 % (39.0-51.0); Hemoglobin 10.9 gm/dL (13.0-17.0); Lymph # (Auto) 0.6 th/mm3 (1.0-4.8); Lymph % (Auto) 5.2 % (9.0-44.0); Mean Corpuscular Hemoglobin 37.8 pg (27.0-34.0); Mean Corpuscular Volume 107.9 fL (80.0-100.0); Mean Platelet Volume 7.2 fL (7.0-11.0); Mono # (Auto) 1.7 th/mm3 (0.0-0.9); Mono % (Auto) 14.3 % (0.0-8.0); Neut # (Auto) 9.5 th/mm3 (1.8-7.7); Neut % (Auto) 79.2 % (16.0-70.0); Platelet Count 303 th/mm3 (150-450); Red Blood Count 2.89 mil/mm3 (4.50-5.90); Red Cell Distribution Width 14.8 % (11.6-17.2)
[2017-12-06 06:13] LABS: Alanine Aminotransferase 21 U/L (12-78); Albumin 3.2 g/dL (3.4-5.0); Anion Gap 8 meq/L (5-15); Aspartate Aminotransferase 24 U/L (15-37); Blood Urea Nitrogen 11 mg/dL (7-18); Calcium 9.2 mg/dL (8.5-10.1); Carbon Dioxide 23.8 meq/L (21.0-32.0); Chloride 105 meq/L (98-107); Glomerular Filtration Rate Greater Than 89 mL/min (>89); Glucose,Random 108 mg/dL (74-106); Magnesium 1.7 mg/dL (1.5-2.5); Phosphorus 3.6 mg/dL (2.5-4.9); Potassium 3.6 meq/L (3.5-5.1); Sodium 137 meq/L (136-145)
[2017-12-06 06:15] LABS: Alkaline Phosphatase 58 U/L (45-117); Total Protein 6.9 g/dL (6.4-8.2)
[2017-12-06] MEDS: hydroCHLOROthiazide 25 MG Tablet PO SCH (09:05)
[2017-12-06] MEDS: chlordiazePOXIDE 25 MG Capsule PO SCH ×2 (09:05→17:32)
[2017-12-06] MEDS: Insulin NovoLOG Aspart Correctional Sugar Inj SQ SCH ×4 (09:06→21:24)
[2017-12-06] MEDS: Senna/Docusate Sodium 8.6/50 MG Tablet PO SCH ×2 (09:06→21:24)
[2017-12-06] MEDS: Polyethylene Glycol 3350 17 GM Packet PO SCH ×2 (09:07→21:24)
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
[2017-12-06] MEDS: Multivitamin Inj 10 ML, Thiamine Inj 100 MG, Folic Acid Inj 1 MG in Sodium Chlor 0.9% I... IV.SIG SCH (10:02)
[2017-12-06] MEDS: Mag Sulf 1 gm/100 ml Premix 100 ML IV.SIG SCH ×2 (10:04→11:12)
--- NOTE | 2017-12-06 23:54 | P.PNNS ---
Physical Exam Vital signs: Vital Signs 12/06/17 00:00 12/06/17 04:00 12/06/17 08:00 Temperature 98.8 F 98.7 F 98.9 F Pulse Rate 65 74 74 Respiratory Rate 8 L 23 31 H Blood Pressure 155/101 H 150/97 H 154/97 H Pulse Oximetry 96 97 96 12/06/17 12:00 12/06/17 16:00 12/06/17 17:32 Temperature 98.8 F 98.6 F Pulse Rate 82 87 Respiratory Rate 25 H 22 22 Blood Pressure 112/63 143/92 H Pulse Oximetry 96 97 12/06/17 20:00 12/06/17 21:22 Temperature 98.5 F Pulse Rate 88 Respiratory Rate 24 26 H Blood Pressure 123/75 Pulse Oximetry 94 L Intake & Output 12/06/17 12/06/17 12/07/17 06:59 18:59 06:59 Intake Total 1250 / 1250 1711.2 / 1711.2 240 / 240 Output Total 975 / 975 400 / 400 Balance 1250 / 1250 736.2 / 736.2 -160 / -160 Weight 94.1 kg Intake: IV 1250 / 1250 1711.2 / 1711.2 Precedex Inj 1,000 MCG In NS 250 / 250 Inj 240 ML @ 0.2 MCG/KG/HR 4.94 mls/hr IV.CONT TITRATE PRN Rx# :[id number] NS + KCl 20 mEq Inj 1,000 ML @ 1000 / 1000 1000 / 1000 100 mls/hr IV.CONT .Q10H ROHINI Rx #:[id number] Magnesium Sulfate 1 gm/D5W 100 200 / 200 ml Premix 100 ML @ 100 mls/hr IV.SIG Q1H ROHIIN Rx#:[id number] MVI-12 Inj 10 ML Thiamine Inj 511.2 / 511.2 100 MG Folvite Inj 1 MG In NS Inj 500 ML @ 127.8 mls/hr IV. SIG DAILY ROHINI Rx#:[id number] Oral 240 / 240 Output: Urine 975 / 975 400 / 400 Other: # Voids 1 Date of Last Bowel Movement 11/30/17 12/06/17 12/06/17 # Bowel Movements 1 Narrative: GENERAL: Well-nourished, well-developed patient who is laying in ISC bed in four -point soft restraints, confused, paranoid, talkative. SKIN: Warm and dry. HEAD: Atraumatic. Normocephalic. EYES: Pupils equal and round. No scleral icterus. ENT: No nasal bleeding or discharge. Mucous membranes pink and moist. NECK: Trachea midline. No JVD. CARDIOVASCULAR: Tachycardic, sinus tach on the monitor 105. No murmurs rubs or gallops. RESPIRATORY: No accessory muscle use. Clear to auscultation. Breath sounds equal bilaterally. On RA. GASTROINTESTINAL: Abdomen soft, non-tender, nondistended. MUSCULOSKELETAL: Extremities without clubbing, cyanosis, or edema. No obvious deformities. NEUROLOGICAL: oriented to self. No said he is in the hospital "rehab center". Speech is moderately slow, mild dysarthria. Follow simple commands reasonably well. Answers simple questions. Remains with mild lethargy. Moves all extremities with good strength. Sensory intact lower extremities to light touch - Urinary Catheter Management Indwelling Urethral Catheter Cath placed during this visit: yes, but has since been removed by the nurse Reason for continuing: Hourly intake/output Insertion date: 12/01/17 Insertion time: 13:15 Removal date: 12/03/17 Removal time: 02:10 condom cath Cath placed during this visit: no Assessment and Plan - Plan Assessment: 47 y/o male s/p L4-L5 laminectomy, interbody arthrodesis using PEEK cage and autologous bone graft, L4-L5 instrumental fixation using transpedicular screws and rods, L4-L5 posterolateral fusion using autologous bone graft and demineralized bone matrix. 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 Daily PT and OT Renal: Continue to monitor closely urine output, BUN and creatinine He pulled his Lawrence catheter out. Urine lorin colored today with external catheter on Endocrine: Continue to Monitor serial Acu checks and SSI as needed in detail ID continue to monitor for signs of infection Continue Protonix for stress ulcer prophylaxis Continue Nikita hose and SCD's for DVT prophylaxis
[2017-12-07 03:48] LABS: Baso # (Auto) 0.1 th/mm3 (0.0-0.2); Baso % (Auto) 0.8 % (0.0-2.0); Eos # (Auto) 0.1 th/mm3 (0.0-0.4); Eos % (Auto) 1.1 % (0.0-4.0); Hematocrit 30.5 % (39.0-51.0); Hemoglobin 10.2 gm/dL (13.0-17.0); Lymph # (Auto) 0.9 th/mm3 (1.0-4.8); Lymph % (Auto) 8.5 % (9.0-44.0); Mean Corpuscular HGB Conc 33.4 % (32.0-36.0); Mean Corpuscular Hemoglobin 37.8 pg (27.0-34.0); Mean Corpuscular Volume 112.9 fL (80.0-100.0); Mean Platelet Volume 7.6 fL (7.0-11.0); Mono # (Auto) 1.6 th/mm3 (0.0-0.9); Mono % (Auto) 15.3 % (0.0-8.0); Neut # (Auto) 7.7 th/mm3 (1.8-7.7); Neut % (Auto) 74.3 % (16.0-70.0); Platelet Count 310 th/mm3 (150-450); White Blood Count 10.4 th/mm3 (4.0-11.0)
[2017-12-07 04:02] LABS: Alanine Aminotransferase 21 U/L (12-78); Anion Gap 11 meq/L (5-15); Aspartate Aminotransferase 21 U/L (15-37); Blood Urea Nitrogen 11 mg/dL (7-18); Calcium 8.5 mg/dL (8.5-10.1); Carbon Dioxide 19.5 meq/L (21.0-32.0); Chloride 106 meq/L (98-107); Glomerular Filtration Rate 87 mL/min (>89); Glucose,Random 86 mg/dL (74-106); Lipase 194 U/L (73-393); Magnesium 1.9 mg/dL (1.5-2.5); Phosphorus 3.8 mg/dL (2.5-4.9); Potassium 3.7 meq/L (3.5-5.1)
[2017-12-07] MEDS: chlordiazePOXIDE 25 MG Capsule PO SCH ×3 (04:02→18:50)
[2017-12-07 04:04] LABS: Alkaline Phosphatase 60 U/L (45-117); Total Protein 6.9 g/dL (6.4-8.2)
[2017-12-07 04:15] LABS: Sodium 136 meq/L (136-145)
[2017-12-07] MEDS: Insulin NovoLOG Aspart Correctional Sugar Inj SQ SCH (08:06)
[2017-12-07] MEDS: Senna/Docusate Sodium 8.6/50 MG Tablet PO SCH ×2 (08:50→20:44)
[2017-12-07] MEDS: hydroCHLOROthiazide 25 MG Tablet PO SCH (08:51)
[2017-12-07] MEDS: Polyethylene Glycol 3350 17 GM Packet PO SCH (08:52)
[2017-12-07] MEDS: Multivitamin Inj 10 ML, Thiamine Inj 100 MG, Folic Acid Inj 1 MG in Sodium Chlor 0.9% I... IV.SIG SCH (09:20)
--- NOTE | 2017-12-07 14:28 | P.PNIM ---
Subjective Interval history: feeling ok. denies tremulousness. tolerating food. Physical Exam Vital signs: Vital Signs 12/06/17 16:00 12/06/17 17:32 12/06/17 20:00 Temperature 98.6 F 98.5 F Pulse Rate 87 88 Respiratory Rate 22 22 24 Blood Pressure 143/92 H 123/75 Pulse Oximetry 97 94 L 12/06/17 21:22 12/07/17 00:00 12/07/17 04:00 Temperature 98.6 F 98.2 F Pulse Rate 80 66 Respiratory Rate 26 H 20 17 Blood Pressure 133/72 147/77 H Pulse Oximetry 97 96 12/07/17 08:00 12/07/17 10:00 12/07/17 12:00 Temperature 98.5 F 98.2 F Pulse Rate 80 102 H 84 Respiratory Rate 20 21 Blood Pressure 139/92 H 103/61 Pulse Oximetry 97 97 Intake & Output 12/06/17 12/07/17 12/07/17 18:59 06:59 18:59 Intake Total 1711.2 / 1711.2 240 / 240 Output Total 975 / 975 400 / 400 Balance 736.2 / 736.2 -160 / -160 Weight 95.1 kg Intake: IV 1711.2 / 1711.2 NS + KCl 20 mEq Inj 1,000 ML @ 1000 / 1000 100 mls/hr IV.CONT .Q10H ROHINI Rx #:[id number] Magnesium Sulfate 1 gm/D5W 100 200 / 200 ml Premix 100 ML @ 100 mls/hr IV.SIG Q1H ROHINI Rx#:[id number] MVI-12 Inj 10 ML Thiamine Inj 511.2 / 511.2 100 MG Folvite Inj 1 MG In NS Inj 500 ML @ 127.8 mls/hr IV. SIG DAILY ROHINI Rx#:[id number] Oral 240 / 240 Output: Urine 975 / 975 400 / 400 Other: # Voids 1 Date of Last Bowel Movement 12/06/17 12/06/17 # Bowel Movements 1 heart reg lung cta abd /snt ext no edema - Urinary Catheter Management Indwelling Urethral Catheter Cath placed during this visit: yes, but has since been removed by the nurse Reason for continuing: Hourly intake/output Insertion date: 12/01/17 Insertion time: 13:15 Removal date: 12/03/17 Removal time: 02:10 condom cath Cath placed during this visit: no Results - Labs CBC & Chem 7: 12/07/17 03:11 12/07/17 03:11 Laboratory Results - last 24 hr 12/06/17 12/07/17 12/07/17 17:00 03:11 03:11 WBC 10.4 RBC 2.70 L Hgb 10.2 L Hct 30.5 L MCV 112.9 H D MCH 37.8 H MCHC 33.4 RDW 15.0 Plt Count 310 MPV 7.6 Neut % (Auto) 74.3 H Lymph % (Auto) 8.5 L [place] % (Auto) 15.3 H Eos % (Auto) 1.1 Baso % (Auto) 0.8 Neut # (Auto) 7.7 Lymph # (Auto) 0.9 L [place] # (Auto) 1.6 H Eos # (Auto) 0.1 Baso # (Auto) 0.1 WBC Differential . Differential Comment Auto diff final Sodium 136 Potassium 3.7 Chloride 106 Carbon Dioxide 19.5 L Anion Gap 11 BUN 11 Creatinine 0.92 Estimated GFR 87 L POC Glucose 129 H Random Glucose 86 Calcium 8.5 Phosphorus 3.8 Magnesium 1.9 Total Bilirubin 0.6 AST 21 ALT 21 Alkaline Phosphatase 60 Total Protein 6.9 Albumin 3.0 L Lipase 194 Assessment and Plan - Assessment (1) Lumbar degenerative disc disease Code(s): M51.36 - Other intervertebral disc degeneration, lumbar region Status : Acute Plan: Delirium tremens Alcohol dependence Lumbar radiculopathy Status post L4-L5 laminectomy, interbody arthrodhesis using PEEK cage and autologous bone graft, L4-L5 instrumental fixation using transpedicular screws and rods, L4-L5 posterolateral fusion using autologous bone graft and demineralized bone matrix. Microsurgical dissection 12/01/17 Dr. Servin Acute postoperative pain Chronic benzodiazepine use Currently on chlordiazepoxide 50 mg every 8 hours off precedex gtt cont librium and wean as tolerated prn ativan PT and oob transfer out of ICU alprazolam 0.5 mg twice daily as needed at home. Receiving 1 can of Budweiser with lunch, dinner and at at bedtime per neurosurgery Tobacco abuse Nicotine patch 21 mg daily prescribed. Tobacco cessation counseling with self evaluation booklet will be provided when he is able to participate. Nasal cannula to maintain saturations greater than equal 92% Incentive spirometry while awake Albuterol/ipratropium aerosols every 4 hours while awake with albuterol aerosols every 2 hours as needed for dyspnea Essential hypertension Continue HCTZ 25 mg p.o. daily, losartan 100 mill grams p.o. daily. On telmisartan 80 mg daily at home As needed labetalol prn >165. GERD Hypoalbuminemia Advance diet as tolerated Continue bowel regimen Pantoprazole 40 mg p.o. daily/home medication continue
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
[2017-12-08] MEDS: chlordiazePOXIDE 25 MG Capsule PO SCH ×3 (01:09→20:37)
[2017-12-08] MEDS: hydroCHLOROthiazide 25 MG Tablet PO SCH (09:16)
[2017-12-08] MEDS: Senna/Docusate Sodium 8.6/50 MG Tablet PO SCH ×2 (09:17→20:37)
[2017-12-08] MEDS: Multivitamin Inj 10 ML, Thiamine Inj 100 MG, Folic Acid Inj 1 MG in Sodium Chlor 0.9% I... IV.SIG SCH (09:18)
--- NOTE | 2017-12-08 10:11 | P.PNIM ---
Subjective Interval history: doing well. ambulating with brace. Physical Exam Vital signs: Vital Signs 12/07/17 12:00 12/07/17 16:00 12/07/17 20:00 Temperature 98.2 F 97.5 F L 98.7 F Pulse Rate 84 82 96 H Respiratory Rate 21 21 24 Blood Pressure 103/61 124/79 127/72 Pulse Oximetry 97 98 97 12/08/17 00:00 12/08/17 00:12 12/08/17 04:00 Temperature 98.7 F 98.7 F Pulse Rate 62 66 Respiratory Rate 14 18 17 Blood Pressure 129/69 114/68 Pulse Oximetry 93 L 94 L 12/08/17 08:00 12/08/17 09:18 Temperature 98.7 F Pulse Rate 88 Respiratory Rate 21 21 Blood Pressure 134/85 Pulse Oximetry 99 Intake & Output 12/07/17 12/08/17 12/08/17 18:59 06:59 18:59 Intake Total 1231.2 / 1231.2 240 / 240 Output Total 700 / 700 250 / 250 Balance 531.2 / 531.2 -10 / -10 Intake: IV 511.2 / 511.2 MVI-12 Inj 10 ML Thiamine Inj 511.2 / 511.2 100 MG Folvite Inj 1 MG In NS Inj 500 ML @ 127.8 mls/hr IV. SIG DAILY ROHINI Rx#:[id number] Oral 720 / 720 240 / 240 Output: Urine 700 / 700 250 / 250 Other: # Voids 3 2 Date of Last Bowel Movement 12/07/17 12/08/17 12/08/17 # Bowel Movements 1 2 heart reg lung cta abd s/nt ext no edema - Urinary Catheter Management Indwelling Urethral Catheter Cath placed during this visit: yes, but has since been removed by the nurse Reason for continuing: Hourly intake/output Insertion date: 12/01/17 Insertion time: 13:15 Removal date: 12/03/17 Removal time: 02:10 condom cath Cath placed during this visit: no Results - Labs CBC & Chem 7: 12/07/17 03:11 12/07/17 03:11 Assessment and Plan - Assessment (1) Lumbar degenerative disc disease Code(s): M51.36 - Other intervertebral disc degeneration, lumbar region Status : Acute Plan: Delirium tremens Alcohol dependence Lumbar radiculopathy Status post L4-L5 laminectomy, interbody arthrodhesis using PEEK cage and autologous bone graft, L4-L5 instrumental fixation using transpedicular screws and rods, L4-L5 posterolateral fusion using autologous bone graft and demineralized bone matrix. Microsurgical dissection 12/01/17 Dr. Servin Acute postoperative pain Chronic benzodiazepine use wean librium again today will plan to dc on taper off precedex gtt prn ativan PT and oob transfer out of ICU pending. alprazolam 0.5 mg twice daily as needed at home. Receiving 1 can of Budweiser with lunch, dinner and at at bedtime per neurosurgery Tobacco abuse Nicotine patch 21 mg daily prescribed. Tobacco cessation counseling with self evaluation booklet will be provided when he is able to participate. Nasal cannula to maintain saturations greater than equal 92% Incentive spirometry while awake Albuterol/ipratropium aerosols every 4 hours while awake with albuterol aerosols every 2 hours as needed for dyspnea Essential hypertension Continue HCTZ 25 mg p.o. daily, losartan 100 mill grams p.o. daily. On telmisartan 80 mg daily at home As needed labetalol prn >165. GERD Hypoalbuminemia Advance diet as tolerated Continue bowel regimen Pantoprazole 40 mg p.o. daily/home medication continue
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
[2017-12-09] MEDS: chlordiazePOXIDE 25 MG Capsule PO SCH (09:39)
[2017-12-09] MEDS: hydroCHLOROthiazide 25 MG Tablet PO SCH (09:39)
[2017-12-09] MEDS: Senna/Docusate Sodium 8.6/50 MG Tablet PO SCH (10:03)
[2017-12-09] MEDS: Multivitamin Inj 10 ML, Thiamine Inj 100 MG, Folic Acid Inj 1 MG in Sodium Chlor 0.9% I... IV.SIG SCH (10:07)
--- NOTE | 2017-12-09 10:49 | P.PNIM ---
Subjective Interval history: pt eager for dc. ambulating. no tremor. eating well. Physical Exam Vital signs: Vital Signs 12/08/17 12:00 12/08/17 12:37 12/08/17 16:00 Temperature 97.1 F L 98.3 F Pulse Rate 81 87 Respiratory Rate 19 21 18 Blood Pressure 101/55 L 118/74 Pulse Oximetry 99 98 12/08/17 20:00 12/09/17 00:45 12/09/17 06:30 Temperature 98.4 F 97.9 F 98 F Pulse Rate 72 79 65 Respiratory Rate 18 17 17 Blood Pressure 138/90 130/88 136/87 Pulse Oximetry 99 99 99 12/09/17 08:00 Temperature 98.2 F Pulse Rate 92 H Respiratory Rate 18 Blood Pressure 162/71 H Pulse Oximetry 92 L Intake & Output 12/08/17 12/09/17 12/09/17 18:59 06:59 18:59 Intake Total 751.2 / 751.2 1900 / 1900 Balance 751.2 / 751.2 1900 / 1900 Weight 95.1 kg Intake: IV 511.2 / 511.2 MVI-12 Inj 10 ML Thiamine Inj 511.2 / 511.2 100 MG Folvite Inj 1 MG In NS Inj 500 ML @ 127.8 mls/hr IV. SIG DAILY ROHINI Rx#:[id number] Oral 240 / 240 1900 / 1900 Other: # Voids 4 Date of Last Bowel Movement 12/08/17 12/08/17 # Bowel Movements 0 heart reg lung cta abd s/nt ext no edema - Urinary Catheter Management Indwelling Urethral Catheter Cath placed during this visit: yes, but has since been removed by the nurse Reason for continuing: Hourly intake/output Insertion date: 12/01/17 Insertion time: 13:15 Removal date: 12/03/17 Removal time: 02:10 condom cath Cath placed during this visit: no Results - Labs CBC & Chem 7: 12/07/17 03:11 12/07/17 03:11 Assessment and Plan - Assessment (1) Lumbar degenerative disc disease Code(s): M51.36 - Other intervertebral disc degeneration, lumbar region Status : Acute Plan: Delirium tremens Alcohol dependence Lumbar radiculopathy Status post L4-L5 laminectomy, interbody arthrodhesis using PEEK cage and autologous bone graft, L4-L5 instrumental fixation using transpedicular screws and rods, L4-L5 posterolateral fusion using autologous bone graft and demineralized bone matrix. Microsurgical dissection 12/01/17 Dr. Servin Acute postoperative pain Chronic benzodiazepine use off precedex gtt wean off benzo with ativan taper medically ok to dc home PT and oob pt will stop using xanax at home. pt says he is established with etoh counselor after dc Tobacco abuse Nicotine patch 21 mg daily prescribed. Tobacco cessation counseling with self evaluation booklet will be provided when he is able to participate. Nasal cannula to maintain saturations greater than equal 92% Incentive spirometry while awake Albuterol/ipratropium aerosols every 4 hours while awake with albuterol aerosols every 2 hours as needed for dyspnea Essential hypertension Continue HCTZ 25 mg p.o. daily, losartan 100 mill grams p.o. daily. On telmisartan 80 mg daily at home As needed labetalol prn >165. GERD Hypoalbuminemia Advance diet as tolerated Continue bowel regimen Pantoprazole 40 mg p.o. daily/home medication continue
--- NOTE | 2017-12-09 11:10 | P.DCO ---
- Physical Therapy Order: Evaluate and treat, Improve ambulation - Home Health Nursing Order: Medical education, Signs/symptoms of disease process, Medication education-adverse effect, Nursing assessment with vital signs - Certification I have seen patient Mark Anthony Spicer on 12/09/17. My clinical findings support the need for the requested home health care services because: Limited mobility due to disease progression, High risk of falls I certify that my clinical findings support that this patient is homebound because: Impaired cognitive ability/safety
--- NOTE | 2017-12-09 11:51 | P.PNNS ---
Subjective Interval history: Pt doing well. Complains of low back soreness with some extension into the buttocks bilaterally but not down the LEs. He ambulated the halls well. Pt states he is joining alcohol support groups and doesn't want to go back to that. Physical Exam Vital signs: Vital Signs 12/08/17 12:00 12/08/17 12:37 12/08/17 16:00 Temperature 97.1 F L 98.3 F Pulse Rate 81 87 Respiratory Rate 19 21 18 Blood Pressure 101/55 L 118/74 Pulse Oximetry 99 98 12/08/17 20:00 12/09/17 00:45 12/09/17 06:30 Temperature 98.4 F 97.9 F 98 F Pulse Rate 72 79 65 Respiratory Rate 18 17 17 Blood Pressure 138/90 130/88 136/87 Pulse Oximetry 99 99 99 12/09/17 08:00 Temperature 98.2 F Pulse Rate 92 H Respiratory Rate 18 Blood Pressure 162/71 H Pulse Oximetry 92 L Intake & Output 12/08/17 12/09/17 12/09/17 18:59 06:59 18:59 Intake Total 751.2 / 751.2 1900 / 1900 Balance 751.2 / 751.2 1900 / 1900 Weight 95.1 kg Intake: IV 511.2 / 511.2 MVI-12 Inj 10 ML Thiamine Inj 511.2 / 511.2 100 MG Folvite Inj 1 MG In NS Inj 500 ML @ 127.8 mls/hr IV. SIG DAILY ROHINI Rx#:[id number] Oral 240 / 240 1900 / 1900 Other: # Voids 4 Date of Last Bowel Movement 12/08/17 12/08/17 # Bowel Movements 0 - Constitutional no acute distress - Routine HEENT Exam Head: Present: normocephalic, atraumatic Eye: Present: PERRL ENT: Present: oropharynx clear - Routine Neck Exam Present: trachea midline - Routine Respiratory Exam Present: CTA bilaterally. Absent: respiratory distress, rhonchi, wheezes - Routine Cardiovascular Exam Present: RRR, S1, S2. Absent: murmur - Routine Abdominal Exam Present: soft, normoactive bowel sounds - Routine Neurological Exam Present: alert, oriented X3, motor deficit (Pt with weakness distally from his neuropathy 2/5 EHL. Otherwise 5/5 proximally.) - Routine Psychiatric Exam Present: normal affect, normal thought process, cooperative, good insight, good judgment - Urinary Catheter Management Indwelling Urethral Catheter Cath placed during this visit: yes, but has since been removed by the nurse Reason for continuing: Hourly intake/output Insertion date: 12/01/17 Insertion time: 13:15 Removal date: 12/03/17 Removal time: 02:10 condom cath Cath placed during this visit: no Assessment and Plan - Assessment (1) Lumbar degenerative disc disease Code(s): M51.36 - Other intervertebral disc degeneration, lumbar region Status : Acute - Plan Assessment: 47 y/o male s/p L4-L5 laminectomy, interbody arthrodesis using PEEK cage and autologous bone graft, L4-L5 instrumental fixation using transpedicular screws and rods, L4-L5 posterolateral fusion using autologous bone graft and demineralized bone matrix. Microsurgical dissection 12/01/17 Etoh withdrawal Plan: D/C pt home. Keep incision clean and dry. LSO brace when oob. follow up with Dr. Servin in 1 week Follow up with pcp in one week. Counseled on alcohol cessation.
[2017-12-09 13:02] VITALS: BP 136/76; PULSE 87; RESP 20; TEMP 98.3; O2SAT 98
--- NOTE | 2017-12-18 10:55 | P.DS ---
Date of admission: 12/01/17 14:05 Primary care physician: Wellington Palmer MD Brief History from admission: Mr Spicer is a 47 year-old with a hisyory of a prior L5-S1 fusion, who presented with intractable mechanical back pain and kareen evidence of L5 lower extremity radiculopathy. He failed maximum nonsurgical management including multiple modalities of conservative treatment as well as pain management interventions by an interventional pain specialist. A surgical decompression and arthrodhesis were indicated as a last resort. DS: Medications - Discharge Medications Prescriptions: hydrocodone-acetaminophen 1 tab PO Q4H PRN #30 tab PRN Reason: Pain lorazepam [Ativan] 0.5 mg PO DIRECTED #13 tab DS: Summary Hospital Course: 47 y/o male s/p L4-L5 laminectomy, interbody arthrodesis using PEEK cage and autologous bone graft, L4-L5 instrumental fixation using transpedicular screws and rods, L4-L5 posterolateral fusion using autologous bone graft and demineralized bone matrix. Microsurgical dissection on 12/01/17. His surgery went well however was complicated due to alcohol withdrawals. He was placed on CIWA protocol. Patient improved and he was discharged home. - Time Spent with Patient Total time spent providing and/or coordinating discharge services: Less than 30 minutes - Quality: VTE Deep Vein Thrombosis/Pulmonary Embolism Present on Admission: No Results Procedures completed during hospitalization: L4-L5 laminectomy, interbody arthrodesis using PEEK cage and autologous bone graft, L4-L5 instrumental fixation using transpedicular screws and rods, L4-L5 posterolateral fusion using autologous bone graft and demineralized bone matrix. Microsurgical dissection - Impressions ITS Impressions Lumbar Spine X-Ray 12/01/17 00:00 CONCLUSION: Postoperative changes as above. Discharge Plan - Discharge Disposition Patient Disposition: W/Home Health Service - Discharge Condition Condition: Stable - Discharge Order Discharge Orders: Discharge Order (Routine); Ordered 12/09/17 Ordered By: Froylan Muroist Clear for Discharge (Routine); Ordered 12/09/17 Ordered By: Kenan Carrillo - Discharge Details Anticipated Discharge Date: 12/09/17 - Physicians Team Primary Care Provider: Wellington Palmer Attending Provider: Alvaro Servin Other Providers: Sukumar Leung MD ; Dougherty,Edward B, DO ; [facility] - Rxs /Orders / Referrals /Forms Prescriptions: New hydrocodone-acetaminophen 10-325 mg Tablet 1 tab PO Q4H PRN (Reason: Pain) Qty: 30 RF: 0 lorazepam [Ativan] 0.5 mg Tablet 0.5 mg PO DIRECTED Qty: 13 RF: 0 Continue hydrochlorothiazide 25 mg Tablet 25 mg PO DAILY pantoprazole 40 mg Tablet,Delayed Release (Dr/Ec) 40 mg PO DAILY telmisartan 80 mg Tablet 80 mg PO DAILY Discontinued alprazolam 0.5 mg Tablet 0.5 mg PO BID PRN (Reason: Anxiety) hydrocodone-acetaminophen 10-325 mg Tablet 1 tab PO Q4-6H PRN (Reason: Pain) Ambulatory Orders / Order Sets / DME: Adjustable Commode 3-in-1 (1 each) (Routine) Location: Determined by Patient Ordered By: Kenan Carrillo Walker With Front Wheels (1 each) (Routine) Location: Determined by Patient Ordered By: Kenan Carrillo Referrals: Wellington Palmer MD [Primary Care Provider] - 12/10/17 12:00 pm (f/u pcp 1 week for recheck.) - Discharge Instructions Patient Printed Instructions: Hydrocodone/Acetaminophen (By mouth), Lorazepam ( By mouth), Laminectomy (DC), Lumbar Brace (DC) Additional Instructions: Your Health Problems: Goals to Promote Your Health: * To prevent worsening of your condition * To maintain your health at the optimal level Directions to Meet Your Goals: * Take your medications as prescribed * Follow your dietary instruction * Follow activity as directed * Keep your appointments as scheduled * Take your immunizations and boosters as scheduled * If your symptoms worsen call your PCP * If no PCP go to Urgent Care or Emergency Room Smoking is dangerous to your health. Avoid second hand smoke. You may reach the 24-hour crisis hotline for domestic abuse at . - Post Discharge Care Plan Care Plan Goals: Your Health Problems: Goals to Promote Your Health: * To prevent worsening of your condition * To maintain your health at the optimal level Directions to Meet Your Goals: * Take your medications as prescribed * Follow your dietary instruction * Follow activity as directed * Keep your appointments as scheduled * Take your immunizations and boosters as scheduled * If your symptoms worsen call your PCP * If no PCP go to Urgent Care or Emergency Room Smoking is dangerous to your health. Avoid second hand smoke. You may reach the 24-hour crisis hotline for domestic abuse at .
== END 2017-12-09 14:50 | disposition home health service (06) ==
LOC: HSDC 11:12 → EDSTATUS 12:00 → HSDI 14:05 → N06 20:20 → N03 12-03 06:36 → N05 12-08 16:37
PROVIDERS: ADMIT Neurological Surgery; ATTEND Neurological Surgery